=== PATIENT | female | born 1995 | race Caucasian/White ===

== ENCOUNTER 2017-02-23 20:46 | Outpatient (CLI) | payer BC, MEDICAID ==
[~2017-02-23] VITALS: Ht 162.6 cm; Wt 79.5 kg
[~2017-02-23 20:46] MED LIST: BIRTH CONTROL PILLS; ENTOCORT EC3 MG PO; PENTASA250 MG PO
[2017-02-23 21:07] VITALS: BP 126/76; PULSE 96; TEMP 98.4
[2017-02-23 21:10] VITALS: BP 126/76; PULSE 96
[2017-02-23] MEDS ORDERED: PRENATAL1 TA7 PO (21:13)
== END 2017-02-23 22:45 | disposition home or self-care (01) ==
LOC: LDRO 20:46
DX: O99.89 Other specified diseases and conditions complicating pregnancy, childbirth and the puerperium (principal); R10.9 Unspecified abdominal pain; Z3A.38 38 weeks gestation of pregnancy

== ENCOUNTER 2017-02-25 19:18 | Inpatient (IN) | payer BC, MEDICAID ==
[~2017-02-25] VITALS: Ht 162.6 cm; Wt 79.1 kg
[~2017-02-25 19:18] MED LIST changes: +PRENATAL1 TA7 PO
[2017-02-25 19:57] VITALS: BP 130/77; PULSE 106; TEMP 98.9
[2017-02-25 21:20] VITALS: BP 116/72; PULSE 105
[2017-02-25 22:00] VITALS: BP 129/78; PULSE 101
[2017-02-25 23:40] VITALS: BP 139/64; PULSE 108
[2017-02-25 23:54] VITALS: BP 118/58; PULSE 112
[2017-02-26] VITALS (59 sets, daily range): BP systolic 95–143; BP diastolic 53–96; PULSE 14–153; TEMP 98.2–99.9
[2017-02-26 04:23] LABS: BASO # 0.1 (0.0-0.2); BASO % 0.3 % (0.0-2.0); GRAN % 86.9 % (42.2-75.2); HEMATOCRIT 32.9 % (35.0-45.0); HEMOGLOBIN 10.4 g/dl (12.0-15.0); LYMPH # 1.2 (1.2-3.4); LYMPH % 6.6 % (20.0-51.0); MEAN CELL VOLUME 88 fl (80.0-95.0); MEAN CORPUSCULAR HEMOGLOBIN 28 pg (26.0-32.0); MEAN CORPUSCULAR HGB CONC 32 g/dl (33.0-37.0); MONO % 5.5 % (1.7-9.3); PLATELET COUNT 209 K/mm3 (130-400); RED BLOOD COUNT 3.74 M/mm3 (4.10-5.30); REDCELL DISTRIBUTION WIDTH-CV 14.7 % (11.5-14.5); WHITE BLOOD COUNT 18.4 K/mm3 (4.8-10.8)
[2017-02-27 01:45] VITALS: BP 89/55; PULSE 120; TEMP 99.1
[2017-02-27 04:19] VITALS: BP 88/48; PULSE 97; TEMP 97.5
[2017-02-27 06:57] LABS: BASO % 0.2 % (0.0-2.0); EOS % 0.2 % (0-4.0); GRAN # 10.1 (1.4-6.5); GRAN % 81.4 % (42.2-75.2); LYMPH # 1.5 (1.2-3.4); LYMPH % 11.8 % (20.0-51.0); MEAN CELL VOLUME 87 fl (80.0-95.0); MEAN CORPUSCULAR HGB CONC 31 g/dl (33.0-37.0); MEAN PLATELET VOLUME 11.6 fl (7.4-10.4); MONO # 0.7 (0.1-0.6); MONO % 5.7 % (1.7-9.3); PLATELET COUNT 161 K/mm3 (130-400); RED BLOOD COUNT 2.67 M/mm3 (4.10-5.30); REDCELL DISTRIBUTION WIDTH-CV 15.1 % (11.5-14.5); WHITE BLOOD COUNT 12.3 K/mm3 (4.8-10.8)
[2017-02-27 07:00] LABS: HEMATOCRIT 23.3 % (35.0-45.0); HEMOGLOBIN 7.3 g/dl (12.0-15.0); MEAN CORPUSCULAR HEMOGLOBIN 27 pg (26.0-32.0)
[2017-02-27 07:06] VITALS: BP 86/44; PULSE 78; TEMP 97.7
[2017-02-27 08:30] VITALS: BP 93/52; PULSE 91
[2017-02-27 17:00] VITALS: BP 110/69; PULSE 101; TEMP 98.5
[2017-02-27 22:10] VITALS: BP 103/60; PULSE 92; TEMP 98
[2017-02-28 07:10] VITALS: BP 94/56; PULSE 104; TEMP 97.8
[2017-02-28] MEDS ORDERED: IBU600 MG PO (08:08)
[2017-02-28] MEDS ORDERED: PERCOCET 325 MG1 TA2 PO (08:09)
== END 2017-02-28 12:00 | disposition home or self-care (01) | DRG 775 ==
LOC: LDRO → LDR 22:45 → OB 02-26 16:00 → LDRO 03-17 06:09
PROVIDERS: Obstetrics & Gynecology
PROC: 10E0XZZ Delivery of Products of Conception, External Approach (ICD-10-PCS; principal; 2017-02-26)
PROC: 0HQ9XZZ Repair Perineum Skin, External Approach (ICD-10-PCS; 2017-02-26)
DX: O70.0 First degree perineal laceration during delivery (principal); O36.0130 Maternal care for anti-D [Rh] antibodies, third trimester, not applicable or unspecified; Z3A.38 38 weeks gestation of pregnancy; Z37.0 Single live birth
CPT/HCPCS: J2405; J2590; J2791; J7120